=== PATIENT | male | born 2000 | race Caucasian/White ===

== ENCOUNTER 2023-05-10 20:11 | Emergency (ER) | payer OTHER ==
[~2023-05-10] VITALS: Ht 188 cm; Wt 95.5 kg
[2023-05-10 20:12] VITALS: TEMP 97.6
[2023-05-10 21:14] LABS: BASO % 0.4 % (0.0-1.0); EOS # 0.3 10^3/uL (0.0-0.5); EOS % 4.3 % (0.0-3.0); HEMATOCRIT 39.9 % (42.0-52.0); HEMOGLOBIN 13.2 g/dl (13.5-17.5); LYMPH # 2.6 10^3/uL (1.5-5.0); LYMPH % 34.1 % (24.0-44.0); MEAN CORPUSCULAR HEMOGLOBIN 29.5 pg (27.0-33.0); MEAN CORPUSCULAR HGB CONC 33.1 g/dl (32.0-36.5); MEAN CORPUSCULAR VOLUME 89.3 fl (80.0-96.0); MONO # 0.6 10^3/uL (0.0-0.8); MONO % 7.3 % (2.0-8.0); NEUTROPHILS # 4.2 10^3/uL (1.5-8.5); NEUTROPHILS % 53.6 % (36.0-66.0); PLATELET COUNT, AUTOMATED 255 10^3/uL (150-450); RED BLOOD COUNT 4.47 10^6/uL (4.30-6.10); WHITE BLOOD COUNT 7.7 10^3/uL (4.0-10.0)
[2023-05-10 21:29] LABS: BLOOD UREA NITROGEN 12 MG/DL (9-23); CALCIUM LEVEL 9.2 MG/DL (8.5-10.1); CARBON DIOXIDE LEVEL 27 MMOL/L (20-31); CHLORIDE LEVEL 105 MMOL/L (98-107); CREATININE FOR GFR 0.91 MG/DL (0.70-1.30); GLUCOSE, FASTING 143 MG/DL (60-100); POTASSIUM SERUM 3.7 MMOL/L (3.5-5.1); SODIUM LEVEL 141 MMOL/L (136-145)
[2023-05-10 21:32] LABS: INR 1.1; PROTHROMBIN TIME 13.9 SECONDS (12.5-14.5)
[2023-05-10 21:33] LABS: PARTIAL THROMBOPLASTIN TIME 31.9 SECONDS (24.8-34.2)
[2023-05-10] MEDS ORDERED: ISOVUE-370 76% 100ML VIAL As Ordered ONE (23:17)
[2023-05-11 00:30] VITALS: BP 119/58; O2SAT 96
== END 2023-05-11 00:54 | disposition home or self-care (01) ==
LOC: M ED 20:11
DX: K62.5 Hemorrhage of anus and rectum (principal)
CPT/HCPCS: 36415; 74021; 74177; 80048; 85025; 85610; 85730; 86850; 86900; 86901; 99284; Q9967

== ENCOUNTER 2023-09-10 17:55 | Emergency (ER) | payer OTHER ==
[~2023-09-10] VITALS: Ht 188 cm; Wt 91.2 kg
[2023-09-10 17:56] VITALS: BP 143/89; TEMP 97.9; O2SAT 95
[2023-09-10] MEDS ORDERED: AZIT500T5 PO (21:53)
[2023-09-10] MEDS ORDERED: AZITHROMYCIN 250MG TABLET PO ONE (22:00)
== END 2023-09-10 22:08 | disposition home or self-care (01) ==
LOC: M ED 17:55
DX: J02.9 Acute pharyngitis, unspecified (principal)